=== PATIENT | male | born 1935 | race Caucasian/White ===

== ENCOUNTER 2019-03-15 21:34 | Inpatient (IN) | payer MEDICARE, OTHER ==
[~2019-03-15] VITALS: Ht 177.8 cm; Wt 97.6 kg
[~2019-03-15 21:34] MED LIST: ASPI81EC PO; Augmentin 875-1 EACH PO; CANDESARTAN-HC1 EAC1 PO; Cipro500 MG PO; ESCI10 PO; GABA100 PO; GLIM2 PO; LOVA20 PO; METF500 PO; METO25ER PO; PANT40 PO; TAMS.4ER PO; VICODIN 5-3001 EACH PO; [UNRECOGNIZED DRUG - CODE] PO
[2019-03-15 22:25] LABS: Hematocrit 46.5 % (37.0-53.0); Hemoglobin 15.1 g/dL (13.5-17.5); Mean Corpuscular HGB 30.8 pg (26.0-34.0); Mean Corpuscular HGB Conc 32.5 g/dL (31.5-36.5); Mean Corpuscular Volume 95 fL (80-100); Mean Platelet Volume 12.8 fL (9.1-12.4); Platelet Count 102 K/mm3 (150-400); RDW Standard Deviation 45.6 fL (35.1-46.3); White Blood Cell Count 11.76 K/mm3 (4.00-11.30)
[2019-03-15 22:47] LABS: Troponin I 0.034 ng/mL (0.000-0.040)
[2019-03-15 22:48] LABS: Alanine Aminotransfer (ALT/SGP 16 U/L (12-78); Albumin, Blood 3.3 g/dL (3.4-5.0); Albumin/Globulin Ratio 0.8 (0.8-1.8); Alk Phos 108 U/L (50-136); Anion Gap 8 mmol/L (6-16); Aspartate Aminotrans (AST/SGOT 18 U/L (12-37); Bilirubin, Total 0.9 mg/dL (0.1-1.0); Blood Urea Nitrogen 21 mg/dL (8-24); Bun/Creatinine Ratio 19.4 (12.0-20.0); CO2, Blood 28 mmol/L (21-32); Calcium, Blood 9.1 mg/dL (8.5-10.1); Chloride, Blood 107 mmol/L (98-108); Creatinine, Blood 1.08 mg/dL (0.60-1.20); Globulin, Blood 3.9 g/dL (2.2-4.0); Glomerular Filtration Rate >60 (60-); Glucose, Blood 92 mg/dL (70-99); Potassium, Blood 3.6 mmol/L (3.5-5.5); Sodium, Blood 143 mmol/L (136-145); Total Protein, Blood 7.2 g/dL (6.4-8.2)
[2019-03-15 23:06] LABS: BAND PERCENT MAN 27 % (0-8); BASOPHILS PERCENT MAN 0 % (0-2); EOSINOPHILS PERCENT MAN 0 % (0-6); LYMPHOCYTES ABSOLUTE MAN 0.23 K/mm3 (0.84-5.20); LYMPHOCYTES PERCENT MAN 2 % (21-46); MONOCYTES ABSOLUTE MAN 0.11 K/mm3 (0.16-1.47); MONOCYTES PERCENT MAN 1 % (4-13); SEG NEUTROPHILS PERCENT MAN 70 % (41-73); TOTAL CELLS COUNTED 100
[2019-03-16 01:13] LABS: Source, Urine Clean Catch
[2019-03-16 01:17] LABS: Bilirubin, Urine Neg (Neg); Blood, Urine 2+ (Neg); Glucose Qualitative, Urine Neg (Neg); Ketones, Urine 1+ (Neg); Leukocyte Esterase, Urine 3+ (Neg); Nitrite, Urine Neg (Neg); Protein, Urine 2+ (Neg); Specific Gravity, Urine 1.015 (1.003-1.022); Urobilinogen, Urine NORM (Normal)
[2019-03-16 01:27] LABS: Appearance, Urine Cloudy (Clear); Color, Urine Yellow (P-Yellow)
[2019-03-16 01:28] LABS: Bacteria Many /hpf; Squamous Epithelial Cells Rare /hpf (Few); White Blood Cells, Urine TNTC /hpf (0-5)
--- NOTE | 2019-03-16 07:05 | NUR ---
ASSUMED CARE: PT ARRIVED FROM ED JUST PRIOR TO SHIFT CHANGE. RECEIVED REPORT FROM NOC RN UPON ENTERING THE ROOM. PT C/O PAIN IN HIS R LEG, STATES IS CHRONIC AND TAKES OXYCODONE AT HOME FOR PAIN. NO ORDER FOR PAIN MEDS AT THIS TIME. PT HAS R FACIAL DROOP AND PT STATES R SIDED UNABLE TO MOVE EXTREMITIES. WILL CONTINUE TO MONITOR AND ASSESS FURTHER.
[2019-03-16 08:04] LABS: Hematocrit 41.3 % (37.0-53.0); Mean Corpuscular HGB 30.2 pg (26.0-34.0); Mean Corpuscular HGB Conc 31.5 g/dL (31.5-36.5); Mean Corpuscular Volume 96 fL (80-100); Mean Platelet Volume 12.5 fL (9.1-12.4); Platelet Count 105 K/mm3 (150-400); RDW Coefficient Variation 13.3 % (11.7-14.2); RDW Standard Deviation 47.1 fL (35.1-46.3); Red Blood Cell Count 4.31 M/mm3 (4.30-5.90); White Blood Cell Count 18.77 K/mm3 (4.00-11.30)
--- NOTE | 2019-03-16 08:08 | NUR ---
LOW BP: PT BP IS NOTED TO BE READING LOW, FLAQUITO BP IS NOTED AT 88/48. POWER GLIDE PLACED BY CLOTILDE CONNOR RN. AT THIS TIME. PT REQUESTING PAIN MEDS, EDUCATED ON PAIN MEDICATIONS EFFECT ON BP. WILL CONTINUE TO MONITOR AND ASSESS FURTHER.
[2019-03-16 08:18] LABS: Albumin, Blood 2.7 g/dL (3.4-5.0); Albumin/Globulin Ratio 0.8 (0.8-1.8); Bun/Creatinine Ratio 17.2 (12.0-20.0); Creatinine, Blood 1.28 mg/dL (0.60-1.20); Globulin, Blood 3.5 g/dL (2.2-4.0); Potassium, Blood 4.2 mmol/L (3.5-5.5); Total Protein, Blood 6.2 g/dL (6.4-8.2)
--- NOTE | 2019-03-16 08:45 | NUR ---
BOLUS: RECEIVED VERBAL ORDER FOR 1L NS BOLUS. STARTED AT THIS TIME
[2019-03-16 09:30] LABS: Adenovirus Not Detected (NOT DETECT); Bordetella pertussis Not Detected (NOT DETECT); Chlamydophila pneumoniae Not Detected (NOT DETECT); Coronavirus 229E Not Detected (NOT DETECT); Coronavirus HKU1 Not Detected (NOT DETECT); Coronavirus NL63 Not Detected (NOT DETECT); Coronavirus OC43 Not Detected (NOT DETECT); Human Metapneumovirus Not Detected (NOT DETECT); Human Rhinovirus/Enterovirus Not Detected (NOT DETECT); Influenza A Not Detected (NOT DETECT); Influenza A/2009-H1 Not Detected (NOT DETECT); Influenza A/H1 Not Detected (NOT DETECT); Influenza A/H3 Not Detected (NOT DETECT); Influenza B Not Detected (NOT DETECT); Mycoplasma pneumoniae Not Detected (NOT DETECT); Parainfluenza Virus 1 Not Detected (NOT DETECT); Parainfluenza Virus 2 Not Detected (NOT DETECT); Parainfluenza Virus 3 Not Detected (NOT DETECT); Parainfluenza Virus 4 Not Detected (NOT DETECT); Respiratory Syncytial Virus Not Detected (NOT DETECT)
[2019-03-16 12:39] LABS: Hematocrit 38.5 % (37.0-53.0); Hemoglobin 12.1 g/dL (13.5-17.5)
[2019-03-16 13:20] LABS: Calcium, Blood 7.6 mg/dL (8.5-10.1); Creatinine, Blood 1.28 mg/dL (0.60-1.20); Potassium, Blood 3.9 mmol/L (3.5-5.5)
--- NOTE | 2019-03-16 16:08 | NUR ---
JOSE INSERTION: NO UA SENT TO LAB AT THIS TIME D/T UA BEING SENT WHILE PT WAS IN ED LESS THAN 24 HOURS AGO. AWAITING CULTURE ON PREVIOUS UA. WILL CONTINUE TO MONITOR.
[2019-03-16] MEDS ORDERED: LOVA40 PO (16:35)
[2019-03-16] MEDS ORDERED: Amaryl1 MG PO (16:37)
--- NOTE | 2019-03-16 18:13 | NUR ---
SHIFT SUMMARY: PT BLOOD PRESSURE HAS BEEN LOW ALL DAY. DR RAINEY AND ARACELI AWARE. PT HAS RECEIVED THREE 1L BOLUS TODAY AND HAS ONLY HAD MINIMAL EFFECT ON INCREASING BLOOD PRESSURE. PT HAS HAD NO C/O AND DENIES ANY DIZZYNESS, LIGHTHEADEDNESS AND HAS REMAINED ASYMPTOMATIC T/O THE DAY. PICC LINE PLACED THIS EVENING IN ANTICIPATION OF POSSIBLY STARTING PRESSORS T/O THE NIGHT D/T LOW BLOOD PRESSURES. INCREASED PAIN IN R LEG WHILE PLACING PICC LINE RECEIVED NEW ORDERS FOR PAIN MEDS. WILL CONTINUE TO MONITOR AND REPORT TO ONCOMING RN. CALL LIGHT WITHIN REACH.
--- NOTE | 2019-03-16 20:00 | NUR ---
ASSUMED CARE OF PT AT 1915. REPORT RECEIVED. PT PRESENTS IN BED SLEEPING. IN NO APPARENT DISTRESS. BLOOD PRESSURES MAINTAINS WITH MAP 60 AND ABOVE. PT DEMONSTRATES SLEEP APNEA TYPE RESPIRATIONS. PT ON 3.5 LITERS OXYGEN PER NASAL CANNULA. MAINTAINS AT 99 PERCENT SATURATIONS. DECREASED FLOW TO 2 L/M. MAINTAINS SATURATIONS > 90 PERCENT. WILL REVIEW CHART AND PLAN OF CARE FOR THIS PT.
--- NOTE | 2019-03-16 21:56 | NUR ---
DR RAINEY CALLS TO CHECK ON PT'S STATUS. GIVES ORDERS THAT IF PT'S BLOOD PRESSURES BECOME LOW AGAIN TO GIVE LITER BOLUS OF LR AND THEN AFTERWARDS PRESSURES REMAIN LOW MAY START LEVOPHED DRIP. AT THIS TIME, PT'S MAP REMAINS >60. PT DENIES PAIN OR VERTIGO AT THIS TIME. REMAINS ALERT ORIENTED. PLEASANT AND COOPERATIVE WITH CARE AND ASSESSMENT. WILL CONTINUE TO MONITOR BLOOD PRESSUES Q 15 MINUTES.
--- NOTE | 2019-03-17 | NUR ---
PT CONTINUES TO MAINTAIN OXYGEN SATURATIONS > 90 PERCENT. HAVE TURNED O2 OFF AT THIS TIME. WILL MONITOR CLOSELY. BLOOD PRESSURES HAVE MAINTAINED WITH MAP > 60.
--- NOTE | 2019-03-17 03:00 | NUR ---
DID NEED TO PLACE OYGEN BACK ON AT 1 LITER PER MINUTE PER NASAL CANNULA. PT WOULD PERIODICALLY DROP TO 88 PERCENT ON ROOM AIR. PT CURRENTLY MAINTAINING SATURATIONS > 90 PERCENT. AGAIN BLOOD PRESSURES REMAIN ADEQUATE. NO COMPLAINTS VOICE BY PT.
[2019-03-17 04:19] LABS: BASOPHILS ABSOLUTE AUTO 0.03 K/mm3 (0.00-0.23); BASOPHILS PERCENT AUTO 0 % (0-2); EOSINOPHILS ABSOLUTE AUTO 0.23 K/mm3 (0.00-0.68); EOSINOPHILS PERCENT AUTO 2 % (0-6); Hematocrit 37.3 % (37.0-53.0); Hemoglobin 11.6 g/dL (13.5-17.5); IMMATURE GRAN ABSOLUTE AUTO 0.04 K/mm3 (0.00-0.10); IMMATURE GRAN PERCENT AUTO 0 % (0-1); LYMPHOCYTES ABSOLUTE AUTO 0.67 K/mm3 (0.84-5.20); LYMPHOCYTES PERCENT AUTO 7 % (21-46); MONOCYTES ABSOLUTE AUTO 0.76 K/mm3 (0.16-1.47); MONOCYTES PERCENT AUTO 8 % (4-13); Mean Corpuscular HGB 30.4 pg (26.0-34.0); Mean Corpuscular HGB Conc 31.1 g/dL (31.5-36.5); Mean Corpuscular Volume 98 fL (80-100); NEUTROPHILS ABSOLUTE AUTO 8.04 K/mm3 (1.96-9.15); NEUTROPHILS PERCENT AUTO 82 % (41-73); Platelet Count 81 K/mm3 (150-400); RDW Coefficient Variation 13.6 % (11.7-14.2); RDW Standard Deviation 48.9 fL (35.1-46.3); Red Blood Cell Count 3.81 M/mm3 (4.30-5.90); White Blood Cell Count 9.77 K/mm3 (4.00-11.30)
[2019-03-17 04:25] LABS: Mean Platelet Volume 13.3 fL (9.1-12.4)
[2019-03-17 04:38] LABS: Anion Gap 6 mmol/L (6-16); Blood Urea Nitrogen 18 mg/dL (8-24); Bun/Creatinine Ratio 16.8 (12.0-20.0); CO2, Blood 24 mmol/L (21-32); Calcium, Blood 8.1 mg/dL (8.5-10.1); Chloride, Blood 113 mmol/L (98-108); Creatinine, Blood 1.07 mg/dL (0.60-1.20); Glomerular Filtration Rate >60 (60-); Glucose, Blood 72 mg/dL (70-99); Phosphorus, Blood 2.4 mg/dL (2.5-4.9); Potassium, Blood 4.4 mmol/L (3.5-5.5); Sodium, Blood 143 mmol/L (136-145)
--- NOTE | 2019-03-17 05:26 | NUR ---
HAVE MEDICATED PT WITH 5 MG OXYCODONE FOR LOWER EXTREMITY PAIN WHICH HE RATES 7/10. PT CURRENTLY RESTING IN BED WITHOUT COMPLAINTS OF PAIN. NO S/S DISTRESS. PT MOVES HIMSELF ABOUT IN BED ON HIS OWN. CONTINUES WITH 1 LITER PER MINUTE OXYGEN FLOW. BLOOD PRESSURES REMAIN WNL. WILL CONTINUE TO MONITOR PT, AAND WILL REPORT OFF TO ONCOMING RN.
--- NOTE | 2019-03-17 07:10 | NUR ---
ASSUMED CARE: RECEIVED REPORT FROM NOC RN. PT APPEARS TO BE SLEEPING AT THIS TIME. EVEN CHEST RISE AND FALL NOTED. NO DISTRESS NOTED. BED IN LOWEST POSSITION AND CALL LIGHT IN REACH. WILL REVIEW CHART, ORDERS, CONTINUE TO MONITOR AND ASSESS FURTHER.
--- NOTE | 2019-03-17 12:05 | NUR ---
DR LAZAR: RECEIVED A CALL FROM DR LAZAR TO FOLLOW UP ABOUT THE PT. INFORMED DR LAZAR THAT WE ARE NOT IN NEED OF A CONSULT AT THIS TIME. D/T NO APPARENT INFECTION NOTED IN THE BONE OF PT'S L LEG, SEEN ON THE X-RAY, DR RAINEY IS NOT WANTING A CONSULT AT THIS TIME.
--- NOTE | 2019-03-17 13:50 | NUR ---
TRANSFER TO PCU 5 PT ALERT AND ORIENTED. TRANSFERED VIA BED ACCOMPANIED BY RNARTURO. PT IN ATTENDENCE. PT MOVED TO NEW BED WITH SLIDER SHEET AND 4 ASSIST. PT TOLERATED WELL AND THOUGHT IT WAS GREAT FUN. CONTINUE POT.
--- NOTE | 2019-03-17 18:23 | NUR ---
EVENING NOTE PT RESTING QUIETLY. SR. PT C/O RIGHT SHOULDER AND LEG PAIN. MEDICATED WITH FENTENYL 75 MCG X1. HIS PAIN WENT FROM A 7 TO 0. HE THEN ASKED TO HAVE THE DOOR SHUT AND TO SKIP DINNER. HE JUST WANTED TO REST. THIS NURSE HAS QUIETLY CHECKED ON HIM SEVERAL TIMES. BREATHING EASY. SR. CONTINUE POT.
[2019-03-18 04:19] LABS: BASOPHILS ABSOLUTE AUTO 0.01 K/mm3 (0.00-0.23); BASOPHILS PERCENT AUTO 0 % (0-2); EOSINOPHILS ABSOLUTE AUTO 0.24 K/mm3 (0.00-0.68); EOSINOPHILS PERCENT AUTO 4 % (0-6); Hematocrit 37.8 % (37.0-53.0); Hemoglobin 11.9 g/dL (13.5-17.5); IMMATURE GRAN ABSOLUTE AUTO 0.01 K/mm3 (0.00-0.10); IMMATURE GRAN PERCENT AUTO 0 % (0-1); LYMPHOCYTES ABSOLUTE AUTO 0.77 K/mm3 (0.84-5.20); LYMPHOCYTES PERCENT AUTO 12 % (21-46); MONOCYTES ABSOLUTE AUTO 0.63 K/mm3 (0.16-1.47); MONOCYTES PERCENT AUTO 10 % (4-13); Mean Corpuscular HGB 30.1 pg (26.0-34.0); Mean Corpuscular HGB Conc 31.5 g/dL (31.5-36.5); Mean Corpuscular Volume 96 fL (80-100); Mean Platelet Volume 12.7 fL (9.1-12.4); NEUTROPHILS ABSOLUTE AUTO 4.59 K/mm3 (1.96-9.15); NEUTROPHILS PERCENT AUTO 73 % (41-73); Platelet Count 90 K/mm3 (150-400); RDW Coefficient Variation 13.2 % (11.7-14.2); RDW Standard Deviation 47.2 fL (35.1-46.3); Red Blood Cell Count 3.95 M/mm3 (4.30-5.90); White Blood Cell Count 6.25 K/mm3 (4.00-11.30)
[2019-03-18 04:32] LABS: Albumin, Blood 2.8 g/dL (3.4-5.0); Anion Gap 4 mmol/L (6-16); Blood Urea Nitrogen 12 mg/dL (8-24); Bun/Creatinine Ratio 12.6 (12.0-20.0); CO2, Blood 28 mmol/L (21-32); Calcium, Blood 8.6 mg/dL (8.5-10.1); Chloride, Blood 112 mmol/L (98-108); Creatinine, Blood 0.95 mg/dL (0.60-1.20); Glomerular Filtration Rate >60 (60-); Glucose, Blood 124 mg/dL (70-99); Phosphorus, Blood 2.4 mg/dL (2.5-4.9); Potassium, Blood 4.1 mmol/L (3.5-5.5); Sodium, Blood 144 mmol/L (136-145)
--- NOTE | 2019-03-18 07:34 | NUR ---
END OF SHIFT SUMMARY PT HAS BEEN ALERT AND ORIENTED, TALKING WITH STAFF APPROPRIATELY, PT HAS CONTINUED TO BE VERY COOPERATIVE WITH CARE. PT PRESENTS WITH R SIDED HEMIPARESIS. DOESA HAVE MOVEMENT BUT GROSS. PT ABLE TO SLIGHTLY REPOSITION SELF, REFUSES TURNING BY THIS STAFF MEMBER. STATES HE JUST WANTS TO LAY ON HIS BACK WHEN SLEEPING. PT REMAINS ON RA. JOSE PATENT. REMAINS IN SR. BP NOTED TO TREND UPWARDS, SYSTOLIC 140'S. PT REQUIRED RIGOBERTO FENTANYL THIS SHIFT FOR PAIN IN R ARM AND BREAKTHROUGH PAIN IN HIS R SIDE R/T PAST CVAM THIS IS CHRONIC PAIN. PT HAS SLEPT FOR MAJORITY OF SHIFT. HAS USED THE CALL LIGHT APPROPRIATELY. REPORT GIVEN TO ONCOMING NURSE.
--- NOTE | 2019-03-18 10:54 | NUR ---
WOUND CARE NOTE LEFT LE WOUND CARE DONE. REMOVED DRESSING APPLIED YESTERDAY. SMALL AMOUNT OF THICK, YELLOW ODORIOUS DRAINAGE NOTED ON DISTAL DRESSING. CLEANED WOUNDS WITH WOUND SALES AND OPERATIONS TRAINEE AND 4X4. AIR DRIED. REAPPLIED SMALL PIECES OF PINK FOAM. WRAPPED LEG WITH KERLEX AND COVERED WITH STIOCKENETTE. PT STATED THAT THE DRESSING WAS COMFORTABLE. CONTINUE POT.
--- NOTE | 2019-03-19 08:13 | NUR ---
END OF SHIFT SUMMARY PT HAS BEEN AXO TALKING WITH STAFF APPROPRIATEY. VSS. REMAINS IN SR. CONTINUES TO HAVE BASELINE R SIDED DEFICITS. HAS BEEN TURNED MULTIPLE TIMES THIS SHIFT. HAS HAD TWO INCONTINENT BM'S AND CLEANED APPROPRIATELY. PT HAS REQUIRED SOME PAIN MEDICATION BUT OTHERWISE HAS REQUIRED VERY LITTLE FROM STAFF. NO ACUTE CHANGES NOTED THIS SHIFT. USES CALL LIGHT APPROPRIATELY. REPORT GIVEN TO ONCOMING NURSE.
[2019-03-19 10:32] LABS: BASOPHILS ABSOLUTE AUTO 0.03 K/mm3 (0.00-0.23); BASOPHILS PERCENT AUTO 0 % (0-2); EOSINOPHILS ABSOLUTE AUTO 0.25 K/mm3 (0.00-0.68); EOSINOPHILS PERCENT AUTO 4 % (0-6); Hematocrit 41.3 % (37.0-53.0); Hemoglobin 13.3 g/dL (13.5-17.5); IMMATURE GRAN ABSOLUTE AUTO 0.03 K/mm3 (0.00-0.10); IMMATURE GRAN PERCENT AUTO 0 % (0-1); LYMPHOCYTES ABSOLUTE AUTO 0.78 K/mm3 (0.84-5.20); LYMPHOCYTES PERCENT AUTO 11 % (21-46); MONOCYTES ABSOLUTE AUTO 0.68 K/mm3 (0.16-1.47); MONOCYTES PERCENT AUTO 9 % (4-13); Mean Corpuscular HGB 29.8 pg (26.0-34.0); Mean Corpuscular HGB Conc 32.2 g/dL (31.5-36.5); Mean Corpuscular Volume 93 fL (80-100); Mean Platelet Volume 12.1 fL (9.1-12.4); NEUTROPHILS ABSOLUTE AUTO 5.44 K/mm3 (1.96-9.15); NEUTROPHILS PERCENT AUTO 76 % (41-73); Platelet Count 111 K/mm3 (150-400); RDW Standard Deviation 43.9 fL (35.1-46.3); Red Blood Cell Count 4.46 M/mm3 (4.30-5.90); White Blood Cell Count 7.21 K/mm3 (4.00-11.30)
[2019-03-19 10:47] LABS: Albumin, Blood 3.1 g/dL (3.4-5.0); Anion Gap 3 mmol/L (6-16); Blood Urea Nitrogen 8 mg/dL (8-24); Bun/Creatinine Ratio 8.1 (12.0-20.0); CO2, Blood 32 mmol/L (21-32); Calcium, Blood 9.1 mg/dL (8.5-10.1); Chloride, Blood 109 mmol/L (98-108); Creatinine, Blood 0.99 mg/dL (0.60-1.20); Glomerular Filtration Rate >60 (60-); Glucose, Blood 101 mg/dL (70-99); Phosphorus, Blood 3.1 mg/dL (2.5-4.9); Sodium, Blood 144 mmol/L (136-145)
--- NOTE | 2019-03-19 13:17 | NUR ---
Tian was given one [place] tablet before lunch, and stated an hour ago that his pain was reduced to 5/10. At this time he appears to be sleeping; he is snoring softly with his eyes closed.
--- NOTE | 2019-03-19 14:16 | NUR ---
Tian's expressed to me concern about the pt's discharge home. She states that the pt "made such a big fuss" that he was discharged home from [facility] before he was able to even walk. She is concerned about safety issues at home, as she is 79 years old herself and states she cannot manage his mobility on her own in the state that he is now.
[2019-03-19 15:35] LABS: Vancomycin, Trough 16.1 ug/mL (5.0-10.0)
--- NOTE | 2019-03-19 17:33 | NUR ---
PATIENT TRANSFER THE PATIENT WAS TRANSFERRED TO THE MEDICAL FLOOR, ROOM 3304 FROM PCU #5, AFTER REPORT WAS CALLED UP TO THE FLOOR. THE PATIENT IS A&O X4 AND PLEASANT TO VISIT WITH. THE PATIENT WAS PLACED BACK ON TELLE AT 1735. THE PATIENT IS RESTING, WAITING FOR DINNER, WILL CONTINUE TO MONITOR.
--- NOTE | 2019-03-20 04:26 | NUR ---
PT'S BP ELEVATED THIS AM BUT HE WAS ANXIOUS RE:PICC LINE NOT DRAWING AND NEED TO HAVE LAB DRAW INSTEAD. HE EXPLAINED THAT PICC INSERTION WAS VERY UNCOMFORTABLE SO WAS A BAD EXPERIENCE AND HE NO LONGER WANTED "POKED UNLESS FOR LABS PERTAINING TO NECESSARY ANTIBIOTICS". I EXPLAINED THAT WE CAN ATTEMPT TO HAVE LABS DRAWN TOGETHER WHEN POSSIBLE WHICH HE AGREED TO AND AM VANC LEVEL WAS OBTAINED. WILL ENSURE DAY STAFF ARE AWARE AND WILL RECHECK VITALS WHEN PT MORE SETTLED.
[2019-03-20 04:30] LABS: Vancomycin, Trough 19.5 ug/mL (5.0-10.0)
--- NOTE | 2019-03-20 05:35 | NUR ---
SUMMARY: PT A/OX4, SPECIFIES NEEDS AND DENIED PAIN THIS SHIFT. HE REPOSITIONS SELF IN BED BUT IS DECONDITIONED AND WASN'T UP THIS SHIFT. CHRONIC JOSE IS PATENT AND DRAINING. IV ROCEPHIN RECIEVED FOR UROSEPSIS TX AND AM VANCO DC'D PER PHARM PER LAB VALUE. PT REQUESTS ALL LABS TO BE DRAWN W/VANCO LEVELS IF POSSIBLE AND UNDERSTANDS LABS PERTAINING TO ABX ARE IMPORTANT BUT IS REFUSING MUTIPLE LAB STICKS T/O DAY. PICC LINE TO L.UA INFUSES BUT DOESN'T DRAW. WILL ALERT DAY STAFF. 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 TOES REMAIN PINK W/BLACK SPOTS/SCABBING NOTED. NO ACUTE CHANGES. PT WAS NSR W/PVC'S AT 80'S PER PCU BRICK BAKER AND WAS HYPERTENSIVE THIS AM D/T ANXIETY CAUSED BY LAB DRAWS. VSS/AFEBRILE. WCTM/REPORT TO DAY RN.
--- NOTE | 2019-03-20 06:42 | NUR ---
NEW VANC DOSING PER PHARMACY AND ABX COMMENCED
[2019-03-20] MEDS ORDERED: Bactrim Ds Tab1 EACH PO (12:54)
--- NOTE | 2019-03-20 15:29 | NUR ---
PATIENT DISCHARGE THE PATIENT WAS DISCHARGED HOME TO HIS SPOUSE, AFTER DISCHARGE INSTRUCTIONS WERE GIVEN TO THE PATIENT. THE PATIENT WAS TRANSPORTED VIA WHEEL CHAIR VAN TO HIS RESIDENCE. THE PATIENT LEFT THE HOSPITAL WITHOUT CONCERN OR CPMPLAINT.
[2019-03-21 08:12] LABS: HEPARIN INDUCED PLATELET AB 0.518 OD (0.000-0.400); SRA, LOW DOSE HEPARIN 2 % (0-20)
[2019-04-15] MEDS ORDERED: Roxicodone5 MG PO (04:20)
== END 2019-03-20 15:28 | disposition home health service (06) | DRG 871 ==
LOC: ER 21:34 → PCU 03-16 05:35 → ICUW 03-16 05:35 → PCU 03-17 13:31 → MEDS 03-19 16:34 → ENPENDDIS 03-20 11:52 → MEDS 03-20 15:28
PROVIDERS: Emergency Medicine; Internal Medicine; Internal Medicine Critical Care Medicine; ADMIT Internal Medicine
PROC: 02HV33Z Insertion of Infusion Device into Superior Vena Cava, Percutaneous Approach (ICD-10-PCS; principal; 2019-03-16)
PROC: 4A02X4A Measurement of Cardiac Electrical Activity, Guidance, External Approach (ICD-10-PCS; 2019-03-16)
DX: A41.89 Other specified sepsis (principal); R65.21 Severe sepsis with septic shock; I50.33 Acute on chronic diastolic (congestive) heart failure; J96.01 Acute respiratory failure with hypoxia; N10 Acute pyelonephritis; N17.9 Acute kidney failure, unspecified; I69.951 Hemiplegia and hemiparesis following unspecified cerebrovascular disease affecting right dominant side; I11.0 Hypertensive heart disease with heart failure; B96.1 Klebsiella pneumoniae [K. pneumoniae] as the cause of diseases classified elsewhere; B95.62 Methicillin resistant Staphylococcus aureus infection as the cause of diseases classified elsewhere; Z66 Do not resuscitate; Z51.5 Encounter for palliative care; E78.5 Hyperlipidemia, unspecified; E86.0 Dehydration; K59.00 Constipation, unspecified; I95.9 Hypotension, unspecified; D69.6 Thrombocytopenia, unspecified; G89.29 Other chronic pain; S91.002A Unspecified open wound, left ankle, initial encounter; Z79.82 Long term (current) use of aspirin; Z79.899 Other long term (current) drug therapy
CPT/HCPCS: 36415; 36569; 51701; 51703; 71046; 73610; 74177; 80048; 80053; 80069; 80202; 81001; 82947; 83605; 83690; 83880; 84145; 84484; 85014; 85018; 85025; 85027; 86022; 87040; 87077; 87081; 87086; 87147; 87186; 87486; 87581; 87633; 87798; 92610; 93005; 93010; 93306; 94640; 94760; 96361-59; 96365-59; 96375-59; 97110; 97162; 97166; 97530; 99285-25; A9270; A9270-GY; C1751; C9113; J0456; J0696; J1650; J1940; J2270; J2550; J3010; J3370; J7030; J7050; J7120; P9046; Q9967

== ENCOUNTER 2019-04-15 14:32 | Inpatient (IN) | payer OTHER, MEDICARE ==
[~2019-04-15] VITALS: Ht 182.9 cm; Wt 90.7 kg
[~2019-04-15 14:32] MED LIST changes: +Amaryl1 MG PO; +Bactrim Ds Tab1 EACH PO; +LOVA40 PO; +Roxicodone5 MG PO
[2019-04-15 15:21] LABS: BASOPHILS ABSOLUTE AUTO 0.04 K/mm3 (0.00-0.23); BASOPHILS PERCENT AUTO 0 % (0-2); EOSINOPHILS ABSOLUTE AUTO 0.24 K/mm3 (0.00-0.68); EOSINOPHILS PERCENT AUTO 2 % (0-6); Hematocrit 40.5 % (37.0-53.0); IMMATURE GRAN ABSOLUTE AUTO 0.03 K/mm3 (0.00-0.10); IMMATURE GRAN PERCENT AUTO 0 % (0-1); LYMPHOCYTES ABSOLUTE AUTO 0.78 K/mm3 (0.84-5.20); LYMPHOCYTES PERCENT AUTO 7 % (21-46); MONOCYTES ABSOLUTE AUTO 0.64 K/mm3 (0.16-1.47); MONOCYTES PERCENT AUTO 6 % (4-13); Mean Corpuscular HGB 30.3 pg (26.0-34.0); Mean Corpuscular HGB Conc 32.1 g/dL (31.5-36.5); Mean Corpuscular Volume 94 fL (80-100); NEUTROPHILS ABSOLUTE AUTO 8.78 K/mm3 (1.96-9.15); NEUTROPHILS PERCENT AUTO 84 % (41-73); Platelet Count 106 K/mm3 (150-400); RDW Coefficient Variation 13.7 % (11.7-14.2); RDW Standard Deviation 46.9 fL (35.1-46.3); Red Blood Cell Count 4.29 M/mm3 (4.30-5.90); White Blood Cell Count 10.51 K/mm3 (4.00-11.30)
[2019-04-15 15:22] LABS: Mean Platelet Volume 13.4 fL (9.1-12.4)
[2019-04-15 15:35] LABS: International Normalized Ratio 1.17; Prothrombin Time Results 12.2 Sec (9.7-11.5)
[2019-04-15 15:43] LABS: Alanine Aminotransfer (ALT/SGP 15 U/L (12-78); Albumin, Blood 3.2 g/dL (3.4-5.0); Albumin/Globulin Ratio 0.9 (0.8-1.8); Alk Phos 81 U/L (50-136); Anion Gap 6 mmol/L (6-16); Aspartate Aminotrans (AST/SGOT 13 U/L (12-37); Bilirubin, Total 1.3 mg/dL (0.1-1.0); Blood Urea Nitrogen 22 mg/dL (8-24); Bun/Creatinine Ratio 20.8 (12.0-20.0); CO2, Blood 29 mmol/L (21-32); Calcium, Blood 8.7 mg/dL (8.5-10.1); Chloride, Blood 105 mmol/L (98-108); Creatinine, Blood 1.06 mg/dL (0.60-1.20); Globulin, Blood 3.6 g/dL (2.2-4.0); Glomerular Filtration Rate >60 (60-); Glucose, Blood 127 mg/dL (70-99); Potassium, Blood 3.9 mmol/L (3.5-5.5); Sodium, Blood 140 mmol/L (136-145); Total Protein, Blood 6.8 g/dL (6.4-8.2)
[2019-04-16 08:55] LABS: BASOPHILS ABSOLUTE AUTO 0.04 K/mm3 (0.00-0.23); BASOPHILS PERCENT AUTO 0 % (0-2); EOSINOPHILS ABSOLUTE AUTO 0.38 K/mm3 (0.00-0.68); EOSINOPHILS PERCENT AUTO 4 % (0-6); Hemoglobin 13.1 g/dL (13.5-17.5); IMMATURE GRAN ABSOLUTE AUTO 0.02 K/mm3 (0.00-0.10); IMMATURE GRAN PERCENT AUTO 0 % (0-1); LYMPHOCYTES ABSOLUTE AUTO 0.84 K/mm3 (0.84-5.20); LYMPHOCYTES PERCENT AUTO 8 % (21-46); MONOCYTES ABSOLUTE AUTO 0.71 K/mm3 (0.16-1.47); MONOCYTES PERCENT AUTO 7 % (4-13); Mean Corpuscular HGB 30.2 pg (26.0-34.0); Mean Corpuscular Volume 95 fL (80-100); NEUTROPHILS ABSOLUTE AUTO 8.03 K/mm3 (1.96-9.15); NEUTROPHILS PERCENT AUTO 80 % (41-73); Platelet Count 96 K/mm3 (150-400); RDW Coefficient Variation 13.8 % (11.7-14.2); RDW Standard Deviation 47.9 fL (35.1-46.3); Red Blood Cell Count 4.34 M/mm3 (4.30-5.90); White Blood Cell Count 10.02 K/mm3 (4.00-11.30)
[2019-04-16 09:09] LABS: Anion Gap 5 mmol/L (6-16); Blood Urea Nitrogen 26 mg/dL (8-24); Bun/Creatinine Ratio 22.4 (12.0-20.0); CO2, Blood 29 mmol/L (21-32); Calcium, Blood 8.6 mg/dL (8.5-10.1); Chloride, Blood 104 mmol/L (98-108); Creatinine, Blood 1.16 mg/dL (0.60-1.20); Glomerular Filtration Rate >60 (60-); Glucose, Blood 133 mg/dL (70-99); Potassium, Blood 4.6 mmol/L (3.5-5.5); Sodium, Blood 138 mmol/L (136-145)
[2019-04-16 09:15] LABS: Mean Platelet Volume 13.2 fL (9.1-12.4)
== END 2019-04-18 14:50 | DRG 481 ==
LOC: ER 14:32 → SURS 15:56
PROVIDERS: Emergency Medicine; Orthopaedic Surgery; ADMIT Family Medicine
PROC: 0QS634Z Reposition Right Upper Femur with Internal Fixation Device, Percutaneous Approach (ICD-10-PCS; principal; 2019-04-16 08:15)
DX: S72.001A Fracture of unspecified part of neck of right femur, initial encounter for closed fracture (principal); I69.351 Hemiplegia and hemiparesis following cerebral infarction affecting right dominant side; D69.3 Immune thrombocytopenic purpura; I50.32 Chronic diastolic (congestive) heart failure; K21.9 Gastro-esophageal reflux disease without esophagitis; E78.5 Hyperlipidemia, unspecified; W19.XXXA Unspecified fall, initial encounter; N40.0 Benign prostatic hyperplasia without lower urinary tract symptoms; D64.9 Anemia, unspecified; E11.40 Type 2 diabetes mellitus with diabetic neuropathy, unspecified; I11.0 Hypertensive heart disease with heart failure; F32.9 Major depressive disorder, single episode, unspecified; Z66 Do not resuscitate; Z99.3 Dependence on wheelchair; I95.9 Hypotension, unspecified
CPT/HCPCS: 36415; 73060; 73502; 73562-RT; 73590; 80048; 80053; 82947; 85025; 85610; 85730; 87081; 96374; 96375; 97110; 97162; 97166; 97530; 99284-25; A9270; C1713; C1769; J0690; J1100; J1650; J2250; J2370; J2405; J2704; J3010; J3370; J7120

== ENCOUNTER 2020-04-26 14:52 | Emergency (ER) | payer OTHER, MEDICARE ==
[~2020-04-26] VITALS: Ht 177.8 cm; Wt 86.2 kg
[~2020-04-26 14:52] MED LIST changes: +CEFP200 PO; +Norco 7.5-3251 EACH PO
[2020-04-26 15:25] LABS: Hematocrit 47.7 % (37.0-53.0); Mean Corpuscular HGB 29.8 pg (26.0-34.0); Mean Corpuscular HGB Conc 31.4 g/dL (31.5-36.5); Mean Corpuscular Volume 95 fL (80-100); Platelet Count 82 K/mm3 (150-400); RDW Coefficient Variation 15.7 % (11.7-14.2); RDW Standard Deviation 54.1 fL (35.1-46.3); Red Blood Cell Count 5.03 M/mm3 (4.30-5.90)
[2020-04-26 15:36] LABS: Albumin/Globulin Ratio 0.8 (0.8-1.8); Bilirubin, Total 3.2 mg/dL (0.1-1.0); Bun/Creatinine Ratio 31.2 (12.0-20.0); Calcium, Blood 9.4 mg/dL (8.5-10.1); Creatinine, Blood 1.28 mg/dL (0.60-1.20); Globulin, Blood 3.8 g/dL (2.2-4.0); Potassium, Blood 3.7 mmol/L (3.5-5.5); Total Protein, Blood 6.8 g/dL (6.4-8.2)
[2020-04-26 16:11] LABS: BAND PERCENT MAN 15 % (0-8); BASOPHILS PERCENT MAN 0 % (0-2); EOSINOPHILS PERCENT MAN 0 % (0-6); LYMPHOCYTES ABSOLUTE MAN 0.17 K/mm3 (0.84-5.20); LYMPHOCYTES PERCENT MAN 4 % (21-46); METAMYELOCYTE ABSOLUTE MAN 0.04 K/mm3 (0.00-0.00); METAMYELOCYTE PERCENT MAN 1 % (0-0); MONOCYTES ABSOLUTE MAN 0.04 K/mm3 (0.16-1.47); MONOCYTES PERCENT MAN 1 % (4-13); NEUTROPHILS ABSOLUTE MAN 4.13 K/mm3 (1.96-9.15); SEG NEUTROPHILS PERCENT MAN 79 % (41-73); TOTAL CELLS COUNTED 100
[2020-04-26 17:35] LABS: Source, Urine Catheter
[2020-04-26 17:43] LABS: Blood, Urine 5+ (Neg); Glucose Qualitative, Urine Neg (Neg); Ketones, Urine 1+ (Neg); Leukocyte Esterase, Urine 3+ (Neg); Nitrite, Urine Neg (Neg); Protein, Urine 4+ (Neg); Urobilinogen, Urine 1+ (Normal)
[2020-04-26 18:01] LABS: Appearance, Urine Turbid (Clear); Bilirubin, Urine 1+ (Neg); Color, Urine Brown (P-Yellow)
[2020-04-26 18:03] LABS: Bacteria Many /hpf; Red Blood Cells, Urine 50-100 /hpf (0-2); Squamous Epithelial Cells Not Seen /hpf (Few); Transitional Epithelial Cells Rare /hpf (0-Rare); Triple Phosphate Crystals Few /hpf; White Blood Cells, Urine TNTC /hpf (0-5)
== END 2020-04-26 20:00 | disposition short-term general hospital (02) ==
LOC: ER 14:52
PROVIDERS: Physician Assistant
DX: A41.9 Sepsis, unspecified organism (principal); R65.21 Severe sepsis with septic shock; N39.0 Urinary tract infection, site not specified; N13.2 Hydronephrosis with renal and ureteral calculous obstruction; Z79.899 Other long term (current) drug therapy; E11.9 Type 2 diabetes mellitus without complications; Z79.2 Long term (current) use of antibiotics; Z86.73 Personal history of transient ischemic attack (TIA), and cerebral infarction without residual deficits; F32.9 Major depressive disorder, single episode, unspecified; E78.5 Hyperlipidemia, unspecified
CPT/HCPCS: 36415; 36556; 51702; 71045; 74177; 80053; 81001; 83605; 85025; 87040; 87077; 87086; 87186; 93005; 93010; 96361-59; 96365-59; 96367-59; 99285-25; C1751; J0696; J3010; J7030; J7060; Q9967; U0002